=== PATIENT | male | born 1960 | race Caucasian/White ===

== ENCOUNTER 2016-10-08 11:01 | Emergency (ER) | payer BC ==
[~2016-10-08] VITALS: Ht 180.3 cm; Wt 92.7 kg
[~2016-10-08 11:01] MED LIST: DUTA0.5C PO; POLY335025 PO; PSYL55.43 PO; SILO8CAP PO; ZOLP5TAB PO
[2016-10-08 11:08] VITALS: BP 154/85; PULSE 87; TEMP 36.6; O2SAT 99; Ht 180.3 cm; Wt 92.7 kg
[2016-10-08] MEDS ORDERED: PSYL48.59 PO (11:23)
[2016-10-08] MEDS ORDERED: AMOX875T PO (11:26)
[2016-10-08] MEDS ORDERED: AMOXICILLIN/CLAVULANATE TAB 875 MG TAB PO ONE (11:30)
[2016-10-08] MEDS ORDERED: DIPHTHERIA/TETANUS/PERTUSSIS 0.5 ML SYR/VIAL IM. ONE (11:30)
--- NOTE | 2016-10-08 11:37 | EMERGENCY ROOM VISIT NOTE ---
ED Visit Note First contact with patient: 11:14 CHIEF COMPLAINT: Cat Bite right index finger HISTORY OF PRESENT ILLNESS: This 55-year-old male presents the ER with chief complaint of a cat bite to his right index finger. The patient states that his neighbor's cat was over at his house last night. 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 He states when he went to check the claws the Cat Bit His Right Index Finger. The patient states that the cat has been acting normal. The cat is a family pet. The patient admits to some slight redness around the puncture wound. His tetanus status is unknown. REVIEW OF SYSTEMS: 6 system review was performed and was negative unless stated otherwise in history of present illness. PMH: The patient is healthy; BPH, hernia repair, back surgery SOCIAL HISTORY: Patient lives with his . The patient denies any tobacco use but admits to occasional alcohol use. PHYSICAL EXAM: Vital Signs: Were reviewed Reviewed Nurse's notes. GENERAL: 55- year-old white male appears in no acute distress. MENTAL Status: Alert and oriented 3. RIGHT INDEX FINGER: There is a scabbed puncture wound on the dorsal aspect of the proximal phalanx with slight surrounding erythema. No tenderness to palpation. The patient is able to flex and extend his finger without difficulty. EMERGENCY DEPARTMENT COURSE: Animal bite form was completed. The patient was given Adacel. The patient was also given Augmentin 875 mg one tablet by mouth while in the emergency room. The patient was discharged home in stable condition. DIAGNOSIS: Puncture wound of the right index finger secondary to cat bite DISCHARGE INSTRUCTIONS: Ibuprofen 600 mg every 6 hours with food if needed for pain. Take Augmentin as prescribed. If you have any worsening symptoms of infection such as increased redness, purulent drainage return to the ER for IV antibiotic therapy. Current/Historical Medications Scheduled Amoxicillin & Pot Clavulanate (Augmentin 875-125 mg), 1 TAB PO BID Polyethylene Glycol 3350 (Miralax), 1 TBS PO DAILY Psyllium (Metamucil), 1 TBS PO DAILY Scheduled PRN Zolpidem Tartrate (Ambien), 5 MG PO HS PRN Allergies Coded Allergies: Apple (Verified Allergy, Unknown, APPLE SKIN-RASH, 10/08/16) NO KNOWN DRUG ALLERGIES (Verified Allergy, Unknown, , 10/08/16) Vital Signs Date Time Temp Pulse Resp B/P (MAP) Pulse Ox O2 Delivery O2 Flow Rate FiO2 10/08/16 11:08 36.6 87 18 154/85 99 Room Air Medications Administered Medications (Trade) Dose Ordered Sig/Jhon Route Start Time Stop Time Status Last Admin Dose Admin Diphtheria/ Pertussis/Tetanus Vacc (Adacel Inj) 0.5 ml ONCE ONCE IM. 10/08/16 11:30 10/08/16 11:31 DC 10/08/16 11:26 0.5 ML Amoxicillin/ Clavulanate Potassium (Augmentin Tab) 875 mg ONE ONCE PO 10/08/16 11:30 10/08/16 11:31 DC 10/08/16 11:27 875 MG Departure Information Prescriptions Amoxicillin & Pot Clavulanate (Augmentin 875-125 mg) 1 Tab Tab 1 TAB PO BID, #19 TAB Prov: India Damian PA-C 10/08/16 Referrals Karson Chacko,D.OJulio C (PCP) Patient Instructions [facility]
== END 2016-10-08 11:44 | disposition home or self-care (01) ==
LOC: C.EDB 11:03 → C.EDD 11:44
DX: S61.230A Puncture wound without foreign body of right index finger without damage to nail, initial encounter (principal); W55.01XA Bitten by cat, initial encounter; Z98.890 Other specified postprocedural states; Z23 Encounter for immunization

== ENCOUNTER → 2016-12-22 | Outpatient (CLI) | payer BC ==
[~2016-12-22] MED LIST changes: -DUTA0.5C PO; +PSYL48.59 PO; -PSYL55.43 PO; -SILO8CAP PO
== END | disposition home or self-care (01) ==
LOC: C.LAB 15:02
PROVIDERS: ATTEND Nurse Practitioner Adult Health
DX: N39.0 Urinary tract infection, site not specified (principal)